=== PATIENT | male | born 1930 | race Caucasian/White ===

== ENCOUNTER 2017-01-09 22:00 | Inpatient (IN) | payer MEDICARE, BC ==
--- NOTE | 2017-01-09 22:55 | EDM.PDOC ---
ED HPI GENERAL MEDICAL PROBLEM - General Chief Complaint: Respiratory Problem Stated Complaint: FLUIDS IN HIS LUNGS Time Seen by Provider: 01/09/17 22:20 Source of Information: Reports: Family, Group Home Records, Old Records History Limitations: Reports: Altered Mental Status - History of Present Illness INITIAL COMMENTS - FREE TEXT/NARRATIVE: Rupert is a resident at [facility] who developed some chest congestion 3 days ago, and staff administered cough meds. Pulmonary congestion persisted, and seemed to escalate this evening with noisy respirations, 02 sats 82% on Ra, unimproved with suctioning and repositioning. He was sent to the [facility] ED for evaluation, placed on a gurney and given 02 per dryerman/woman at 3lpm with improvement in Fi02 91%. Suctioning of clear secretions also provided some improvement. A portable chest x ray notes some infiltrates in the L lower lobe, incipient pneumonitis suspected. Generalized Pain Score (Numeric/FACES): 3 - Related Data Allergies Allergy/AdvReac Type Severity Reaction Status Date / Time No Known Allergies Allergy Verified 01/09/17 23:11 Home Meds: Home Meds Carbidopa/Levodopa [Carbidopa-Levodopa 25-100] 2 tab PO TID 07/04/14 [History] Acetaminophen [Tylenol] 650 mg PO Q4H PRN #0 tablet 11/29/14 [Rx] Carbidopa/Levodopa [Carbidopa-Levo ER 50-200] 1 tab PO ASDIRECTED PRN #0 tab.er 11/29/14 [Rx] Carbidopa/Levodopa [Carbidopa-Levo ER 50-200] 1 tab PO BEDTIME tab.er 11/29/14 [Rx] Cholecalciferol (Vitamin D3) [Vitamin D3] 400 units PO BID tablet 11/29/14 [Rx] Gabapentin [Neurontin] 800 mg PO BEDTIME cap 11/29/14 [Rx] Lutein/Min/Vit C/Vit E Acetate [Ocuvite Lutein] 1 each PO DAILY cap 11/29/14 [ Rx] Mirtazapine [Remeron] 15 mg PO BEDTIME tablet 11/29/14 [Rx] Simvastatin [Zocor] 20 mg PO BEDTIME tablet 11/29/14 [Rx] Acetaminophen [Acetaminophen Extra Strength] 1,000 mg PO BID 01/09/17 [History] Baclofen [Baclofen] 5 mg PO BID 01/09/17 [History] Baclofen [Baclofen] 10 mg PO BID PRN 01/09/17 [History] Bisacodyl [Dulcolax] 10 mg RECTAL ASDIRECTED PRN 01/09/17 [History] Docusate Sodium/Sennosides [Senna Plus] 1 tab PO BID 01/09/17 [History] Hypromellose [GenTeal Mild to Moderate Ophth Soln] 1 drop EYEBOTH TID 01/09/17 [ History] Insulin Aspart [NovoLOG] 4 unit SQ BID 01/09/17 [History] Insulin Detemir [Levemir] 80 unit SQ DAILY 01/09/17 [History] Loperamide [Imodium] 2 mg PO ASDIRECTED PRN 01/09/17 [History] Magnesium Hydroxide [Milk of Magnesia] 30 ml PO DAILY 01/09/17 [History] Multivitamin [Multi-Vitamin Daily] 1 tab PO DAILY 01/09/17 [History] PARoxetine [Paxil] 20 mg PO DAILY 01/09/17 [History] Polyethylene Glycol 3350 [MiraLAX] 1 drop EYEBOTH BID 01/09/17 [History] Polyethylene Glycol 3350 [MiraLAX] 17 gm PO DAILY 01/09/17 [History] amLODIPine [Norvasc] 5 mg PO DAILY 01/09/17 [History] guaiFENesin [Robitussin] 100 mg PO Q4HR PRN 01/09/17 [History] metFORMIN HCl [Metformin HCl] 1,000 mg PO BID 01/09/17 [History] traZODone 50 mg PO 1600 01/09/17 [History] Lutein 5 mg PO DAILY 01/10/17 [History] Past Medical History Genitourinary History: Reports: Renal Disease Other Genitourinary History: PROSTATE CANCER Other Musculoskeletal History: Fell. Neurological History: Reports: Other (See Below) (chronic subdural hematoma) Other Neuro History: Fell, possible head injury. Endocrine/Metabolic History: Reports: Diabetes, Type II Oncologic (Cancer) History: Reports: Prostate Social & Family History - Tobacco Use Smoking Status *Q: Unknown Ever Smoked Years of Tobacco use: 40 Used Tobacco, but Quit: No Second Hand Smoke Exposure: No - Alcohol Use Days Per Week of Alcohol Use: 0 - Recreational Drug Use Recreational Drug Use: No - Living Situation & Occupation Living situation: Reports: , with Spouse Occupation: Disabled ED ROS GENERAL - Review of Systems Review Of Systems: Unable To Obtain ED EXAM, GENERAL - Physical Exam Exam: See Below Exam Limited By: Physical Impairment General Appearance: Lethargic, Obese Eye Exam: Bilateral Eye: Normal Inspection, PERRL Ears: Normal External Exam Nose: Normal Inspection Throat/Mouth: Normal Inspection Head: Normocephalic Neck: Normal Inspection, Limited Range of Motion Respiratory/Chest: No Respiratory Distress, No Accessory Muscle Use, Rales, Rhonchi Cardiovascular: Regular Rate, Rhythm GI/Abdominal: Normal Bowel Sounds, Soft, No Organomegaly, No Mass Back Exam: Normal Inspection Extremities: Limited Range of Motion (RUE: 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 I could rule out an early aspiration or SNF acquired pneumonia. Last Recorded V/S: Last Vital Signs Temp 37.3 C 01/09/17 22:00 Pulse 128 H 01/09/17 22:00 Resp 22 H 01/09/17 22:00 BP 160/88 H 01/09/17 22:00 Pulse Ox 80 L 01/09/17 22:00 - Orders/Labs/Meds Orders: Active Orders 24 hr Category Date Time Status Oxygen Therapy Adult [Oxygen Therapy, ED] [RC] Care 01/09/17 22:00 Active ASDIRECTED Chest 1V Frontal [CR] Stat Exams 01/09/17 22:16 Taken CULTURE BLOOD [BC] Stat Lab 01/09/17 23:20 Received Obtain Bld cultures prior to antibiotics [COMM] Routine Oth 01/09/17 23:08 Ordered Departure - Departure Time of Disposition: 23:18 Disposition: Refer to Observation Condition: Poor Clinical Impression: Aspiration pneumonia Qualifiers: Aspiration pneumonia type: unspecified Laterality: left Lung location: lower lobe of lung Qualified Code(s): J69.0 - Pneumonitis due to inhalation of food and vomit - Discharge Information - Problem List & Annotations (1) Aspiration pneumonia SNOMED Code(s): 724439987 Code(s): J69.0 - PNEUMONITIS DUE TO INHALATION OF FOOD AND VOMIT Status: Acute Current Visit: Yes Annotation/Comment:: Obtain cultures, provide antibiotic coverage and support pulmonary status. Qualifiers: Aspiration pneumonia type: unspecified Laterality: left Lung location: lower lobe of lung Qualified Code(s): J69.0 - Pneumonitis due to inhalation of food and vomit - Problem List Review Problem List Initiated/Reviewed/Updated: Yes - My Orders Last 24 Hours: My Active Orders 01/09/17 22:00 Oxygen Therapy Adult [Oxygen Therapy, ED] [RC] ASDIRECTED 01/09/17 22:16 Chest 1V Frontal [CR] Stat 01/09/17 23:08 Obtain Bld cultures prior to antibiotics [COMM] Routine 01/09/17 23:20 CULTURE BLOOD [BC] Stat - Assessment/Plan Last 24 Hours: My Active Orders 01/09/17 22:00 Oxygen Therapy Adult [Oxygen Therapy, ED] [RC] ASDIRECTED 01/09/17 22:16 Chest 1V Frontal [CR] Stat 01/09/17 23:08 Obtain Bld cultures prior to antibiotics [COMM] Routine 01/09/17 23:20 CULTURE BLOOD [BC] Stat Plan: Follow up with hospitalist in the am.
[2017-01-10] MEDS ORDERED: Sodium Chloride 0.9% 10 ML Syringe FLUSH PRN ×2 (01:16)
[2017-01-10] MEDS ORDERED: Acetaminophen 325 MG Tab PO ONE (01:27)
[2017-01-10] MEDS ORDERED: Acetaminophen 325 MG Tab PO PRN (01:28)
[2017-01-10] MEDS ORDERED: Bisacodyl 10 MG Supp RECTAL PRN (01:28)
[2017-01-10] MEDS ORDERED: Carbidopa/Levodopa 50-200 MG Tab.ER PO PRN (01:28)
[2017-01-10] MEDS ORDERED: Baclofen 10 MG Tab PO PRN (01:28)
[2017-01-10] MEDS ORDERED: guaiFENesin 100 MG/5 ML Soln 5 ML UD Cup PO PRN (01:28)
[2017-01-10] MEDS ORDERED: Acetaminophen 325 MG Supp RECTAL ONE (01:50)
[2017-01-10] MEDS: Levofloxacin/Dextrose 5%-Water 500 MG in Premix Bag 1 BAG IV SCH (01:52)
[2017-01-10] MEDS: Sodium Chloride 0.9% 1,000 ML IV SCH ×2 (02:33→22:12)
[2017-01-10] MEDS: metroNIDAZOLE/Normal Saline 500 MG in Premix Bag 1 BAG IV SCH ×3 (03:03→17:39)
[2017-01-10] MEDS ORDERED: metFORMIN 1,000 MG Tab *PTOM PO SCH (09:00)
[2017-01-10] MEDS ORDERED: Magnesium Hydroxide 400 MG/5 ML Susp 30 ML Cup PO PRN (09:00)
[2017-01-10] MEDS ORDERED: Polyethylene Glycol 3350 Powder 238 GM Bot *PTOM PO SCH (09:00)
--- NOTE | 2017-01-10 09:24 | PCM.HP ---
H&P History of Present Illness - General Date of Service: 01/10/17 Admit Problem/Dx: Admission Diagnosis/Problem Admission Diagnosis/Problem Aspiration pneumonia Source of Information: EMS Notes Reviewed, Family History Limitations: Reports: Altered Mental Status - History of Present Illness Initial Comments - Free Text/Narative: This is an 86-year-old male patient that is a resident of [facility]. 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 According to the he's had a cough for about 3 days and then started more lethargic and start running a fever. His oxygen saturation was in the 80s last night. They brought him to the ER and he was admitted. His states when he is been eating lately that he's been coughing. He does have any thickened liquids for his diet. Patient is not responding and not able to get any history from him at this time. The is unaware of anything else going on with him. Generalized Pain Score (Numeric/FACES): 3 - Related Data Allergies/Adverse Reactions: Allergies Allergy/AdvReac Type Severity Reaction Status Date / Time No Known Allergies Allergy Verified 01/09/17 23:11 Home Medications: Home Meds Carbidopa/Levodopa [Carbidopa-Levodopa 25-100] 2 tab PO TID@08,12,16 07/04/14 [ History] Acetaminophen [Tylenol] 650 mg PO Q4H PRN #0 tablet 11/29/14 [Rx] Carbidopa/Levodopa [Carbidopa-Levo ER 50-200] 1 tab PO ASDIRECTED PRN #0 tab.er 11/29/14 [Rx] Carbidopa/Levodopa [Carbidopa-Levo ER 50-200] 1 tab PO BEDTIME tab.er 11/29/14 [Rx] Cholecalciferol (Vitamin D3) [Vitamin D3] 400 units PO BID tablet 11/29/14 [Rx] Gabapentin [Neurontin] 800 mg PO BEDTIME cap 11/29/14 [Rx] Lutein/Min/Vit C/Vit E Acetate [Ocuvite Lutein] 1 each PO DAILY cap 11/29/14 [ Rx] Acetaminophen [Acetaminophen Extra Strength] 1,000 mg PO BID 01/09/17 [History] Baclofen [Baclofen] 5 mg PO BID 01/09/17 [History] Baclofen [Baclofen] 5 mg PO BID PRN 11/27/17 [History] Bisacodyl [Dulcolax] 10 mg RECTAL Q72H PRN 01/09/17 [History] Docusate Sodium/Sennosides [Senna Plus] 1 tab PO BID 01/09/17 [History] Insulin Aspart [NovoLOG] 4 unit SQ BIDAC 01/09/17 [History] Insulin Detemir [Levemir] 80 unit SQ DAILY 01/09/17 [History] Loperamide [Imodium] 2 - 4 mg PO ASDIRECTED PRN 01/09/17 [History] Magnesium Hydroxide [Milk of Magnesia] 30 ml PO DAILY 01/09/17 [History] Multivitamin [Multi-Vitamin Daily] 1 tab PO DAILY 01/09/17 [History] Polyethylene Glycol 3350 [MiraLAX] 1 drop EYEBOTH BID 01/09/17 [History] Polyethylene Glycol 3350 [MiraLAX] 17 gm PO DAILY 01/09/17 [History] amLODIPine [Norvasc] 5 mg PO DAILY 01/09/17 [History] guaiFENesin [Robitussin] 100 mg PO Q4H PRN 01/09/17 [History] metFORMIN HCl [Metformin HCl] 1,000 mg PO BIDMEALS 01/09/17 [History] traZODone 25 mg PO 1600 01/09/17 [History] Calcium Carbonate/Vitamin D3 [Oyster Shell 250 mg + Vit D] 2 tab PO DAILY [History] Hypromellose [GenTeal Mild to Moderate Ophth Soln] 1 drop EYEBOTH BID 01/10/17 [ History] Lutein 5 mg PO DAILY 01/10/17 [History] Mirtazapine 30 mg PO BEDTIME 01/10/17 [History] PARoxetine [Paxil] 20 mg PO DAILY 01/10/17 [History] Simvastatin [Zocor] 20 mg PO BEDTIME 01/10/17 [History] Past Medical History HEENT History: Reports: Hard of Hearing, Macular Degeneration Cardiovascular History: Reports: None Respiratory History: Reports: SOB Gastrointestinal History: Reports: GERD Genitourinary History: Reports: Renal Disease Other Genitourinary History: PROSTATE CANCER Musculoskeletal History: Reports: Other (See Below) Other Musculoskeletal History: Fell. Neurological History: Reports: Other (See Below) (chronic subdural hematoma) Other Neuro History: Fell, possible head injury. Psychiatric History: Reports: Anxiety, Other (See Below) Other Psychiatric History: unable to speak, does understand Endocrine/Metabolic History: Reports: Diabetes, Type II Hematologic History: Reports: None Immunologic History: Reports: None Oncologic (Cancer) History: Reports: Prostate Dermatologic History: Reports: Other (See Below) Other Dermatologic History: skin cancer face, was removed - Infectious Disease History Infectious Disease History: Reports: Chicken Pox, Measles, Mumps, Shingles - Past Surgical History Head Surgeries/Procedures: Reports: None HEENT Surgical History: Reports: Cataract Surgery Other HEENT Surgeries/Procedures: information given by daughter kyaw omer Cardiovascular Surgical History: Reports: None Respiratory Surgical History: Reports: None GI Surgical History: Reports: None Male Surgical History: Reports: Other (See Below) Other Male Surgeries/Procedures: prostate removed Endocrine Surgical History: Reports: None Neurological Surgical History: Reports: None Musculoskeletal Surgical History: Reports: None Dermatological Surgical History: Reports: Skin Biopsy Social & Family History - Family History Family Medical History: Noncontributory - Tobacco Use Smoking Status *Q: Unknown Ever Smoked Years of Tobacco use: 40 Packs/Tins Daily: 1 Used Tobacco, but Quit: No Month Tobacco Last Used: dec 2011 Tobacco Use Comment: stopped smoking 5 years ago Second Hand Smoke Exposure: No - Caffeine Use Caffeine Use: Reports: None - Alcohol Use Days Per Week of Alcohol Use: 0 - Recreational Drug Use Recreational Drug Use: No - Living Situation & Occupation Living situation: Reports: , with Spouse Occupation: Disabled H&P Review of Systems - Review of Systems: Review Of Systems: Unable To Obtain Exam - Exam Exam: See Below - Vital Signs Vital Signs: Last Vital Signs Temp 99.5 F 01/10/17 08:00 Pulse 89 01/10/17 08:00 Resp 22 H 01/10/17 08:00 BP 144/84 H 01/10/17 08:00 Pulse Ox 94 L 01/10/17 08:00 Weight: 205 lb 4.8 oz - Exam General: Obtunded. No: Alert, Oriented, Cooperative HEENT: Conjunctiva Clear, Posterior Pharynx Clear, TMs Clear Neck: Supple, Trachea Midline Lungs: Normal Respiratory Effort, Decreased Breath Sounds. No: Crackles, Rales , Rhonchi Cardiovascular: Regular Rate, Regular Rhythm. No: Systolic Murmur, Diastolic Murmur GI/Abdominal Exam: Normal Bowel Sounds, Non-Tender, No Distention Extremities: Normal Inspection, Non-Tender, No Pedal Edema Skin: Warm, Dry, Other (Abrasion with a small skin tear right forearm.) Neurological: Normal Tone. No: Normal Gait, Normal Speech Neuro Extensive - Mental Status: No: Alert, Oriented x3 Neuro Extensive - Motor, Sensory, Reflexes: Other (Patient not responsive to pain) Psychiatric: No: Alert, Normal Affect, Normal Mood - Patient Data Lab Results Last 24 hrs: Laboratory Results - last 24 hr 01/09/17 01/09/17 01/10/17 Range/Units 23:20 23:20 07:43 WBC 11.9 (4.5-12.0) X10-3/uL RBC 5.29 (4.30-5.75) x10(6)uL Hgb 16.6 H (11.5-15.5) g/dL Hct 49.3 (30.0-51.3) % MCV 93.1 (80-96) fL MCH 31.3 (27.7-33.6) pg MCHC 33.6 (32.2-35.4) g/dL RDW 12.9 (11.5-15.5) % Plt Count 163 (125-369) X10(3)uL MPV 9.7 (7.4-10.4) fL Neut % (Auto) 74.8 (46-82) % Lymph % (Auto) 16.1 (13-37) % [place] % (Auto) 7.0 (4-12) % Eos % (Auto) 1 (1.0-5.0) % Baso % (Auto) 1 (0-2) % Neut # (Auto) 9.0 H (1.6-8.3) # Lymph # (Auto) 1.9 (0.6-5.0) # [place] # (Auto) 0.8 (0.0-1.3) # Eos # (Auto) 0.1 (0.0-0.8) # Baso # (Auto) 0.1 (0.0-0.2) # Sodium 141 (135-145) mmol/L Potassium 4.0 (3.5-5.3) mmol/L Chloride 101 (100-110) mmol/L Carbon Dioxide 29 (21-32) mmol/L BUN 15 (7-18) mg/dL Creatinine 0.9 (0.70-1.30) mg/dL Est Cr Clr Drug Dosing 58.92 mL/min Estimated GFR (MDRD) > 60 (>60) BUN/Creatinine Ratio 16.7 (9-20) Glucose 95 (80-116) mg/dL POC Glucose 107 (80-116) mg/dL Calcium 9.1 (8.6-10.2) mg/dL Total Bilirubin 0.7 (0.1-1.3) mg/dL AST 19 (5-25) IU/L ALT 8 L (12-36) U/L Alkaline Phosphatase 144 H (56-112) IU/L Total Protein 7.6 (6.0-8.0) g/dL Albumin 3.7 (3.2-4.6) g/dL Globulin 3.9 g/dL Albumin/Globulin Ratio 1.0 Result Diagrams: 01/09/17 23:20 01/09/17 23:20 *Q Meaningful Use (ADM) - VTE *Q VTE Criteria *Q: - Stroke *Q Stroke Criteria *Q: - AMI *Q AMI Criteria *Q: - Problem List (1) Palliative care status SNOMED Code(s): 353993326 ICD Code: Z51.5 - ENCOUNTER FOR PALLIATIVE CARE Status: Acute Current Visit: Yes (2) Aspiration pneumonia SNOMED Code(s): 163978862 ICD Code: J69.0 - PNEUMONITIS DUE TO INHALATION OF FOOD AND VOMIT Status: Acute Current Visit: Yes Problem Details: Obtain cultures, provide antibiotic coverage and support pulmonary status. Qualifiers: Aspiration pneumonia type: unspecified Laterality: left Lung location: lower lobe of lung Qualified Code(s): J69.0 - Pneumonitis due to inhalation of food and vomit (3) Ambulatory dysfunction SNOMED Code(s): 695842937 ICD Code: R26.2 - DIFFICULTY IN WALKING, NOT ELSEWHERE CLASSIFIED Status: Chronic Priority: Medium Current Visit: No (4) Anxiety disorder due to a general medical condition SNOMED Code(s): 34949648 ICD Code: F06.4 - ANXIETY DISORDER DUE TO KNOWN PHYSIOLOGICAL CONDITION Status: Chronic Priority: Medium Current Visit: No Onset Date: 11/05/14 (5) Diabetes mellitus SNOMED Code(s): 42217066 ICD Code: E11.9 - TYPE 2 DIABETES MELLITUS WITHOUT COMPLICATIONS Status: Chronic Priority: Low Current Visit: No Onset Date: 12/18/13 Problem Details: Need to continue current insuline regumen to prevent in hypo/hyperglycemic episodes which could impair LOC as well as immune system. sets him up for dehydration and further neurovascular/electrolyte dysregulation. (6) Parkinson's disease SNOMED Code(s): 74211399 ICD Code: G20 - PARKINSON'S DISEASE Status: Chronic Priority: Medium Current Visit: No Problem List Initiated/Reviewed/Updated: Yes Orders Last 24hrs: Active Orders 24 hr Category Date Time Status Blood Glucose Check, Bedside [RC] QIDACANDBED Care 01/10/17 01:16 Active Pulse Oximetry [RC] INTERMITTENT Care 01/10/17 01:16 Active Up With Assistance [RC] ASDIRECTED Care 01/10/17 01:16 Active Vital Signs [RC] 00,04,08,12,16,20 Care 01/10/17 01:16 Active Nothing per Oral Now Diet [DIET] Diet 01/10/17 Breakfast Active CULTURE BLOOD [BC] Routine Lab 01/09/17 23:25 Received Acetaminophen [Tylenol] Med 01/10/17 01:28 Active 650 mg PO Q4H PRN Baclofen [Lioresal] Med 01/10/17 09:00 Active 5 mg PO BID Baclofen [Lioresal] Med 01/10/17 01:28 Active 5 mg PO BID PRN Bisacodyl [Dulcolax] Med 01/10/17 01:28 Active 10 mg RECTAL ASDIRECTED PRN Carbidopa/Levodopa [Sinemet 25-100 mg] Med 01/10/17 08:00 Active 2 tab PO TID@0800,1200,1600 Carbidopa/Levodopa [Sinemet Cr 50-200 mg] Med 01/10/17 01:28 Active 1 tab PO ASDIRECTED PRN Carbidopa/Levodopa [Sinemet Cr 50-200 mg] Med 01/10/17 21:00 Active 1 tab PO BEDTIME Cholecalciferol (Vitamin D3) [Vitamin D3] Med 01/10/17 09:00 Active 0 units PO BID Docusate Sodium/Sennosides [Senna Plus] Med 01/10/17 09:00 Active 1 tab PO BID Gabapentin [Neurontin] Med 01/10/17 21:00 Active 800 mg PO BEDTIME Hypromellose [GenTeal Mild to Moderate Ophth Soln] Med 01/10/17 09:00 Ordered DOSE ml EYEBOTH TID Levofloxacin/Dextrose 5%-Water [Levaquin in D5W 500 MG/ Med 01/10/17 02:00 Active 100 ML] 500 mg Premix Bag 1 bag IV Q24H Lutein Med 01/10/17 09:00 Active 5 mg PO DAILY Lutein/Min/Vit C/Vit E Acetate [Ocuvite Lutein] Med 01/10/17 09:00 Active 1 each PO DAILY Magnesium Hydroxide [Milk of Magnesia] Med 01/10/17 09:00 Active 30 ml PO DAILY PRN Multivitamins [Tab-A-Gabi] Med 01/10/17 09:00 Active 1 tab PO DAILY Polyethylene Glycol 3350 [MiraLAX] Med 01/10/17 09:00 Active 17 gm PO DAILY Sodium Chloride 0.9% [Normal Saline] 1,000 ml Med 01/10/17 01:30 Active IV ASDIRECTED Sodium Chloride 0.9% [Saline Flush] Med 01/10/17 01:16 Active 10 ml FLUSH ASDIRECTED PRN Sodium Chloride 0.9% [Saline Flush] Med 01/10/17 01:16 Active 10 ml FLUSH ASDIRECTED PRN amLODIPine [Norvasc] Med 01/10/17 09:00 Active 5 mg PO DAILY guaiFENesin [Robitussin] Med 01/10/17 01:28 Active 100 mg PO Q4H PRN metFORMIN [Glucophage] Med 01/10/17 09:00 Active 1,000 mg PO BIDMEALS metroNIDAZOLE/Normal Saline [Flagyl 500 MG in NS 100 ML Med 01/10/17 02:00 Active ] 500 mg Premix Bag 1 bag IV Q8H traZODone Med 01/10/17 16:00 Active 25 mg PO 1600 Peripheral IV Insertion Adult [OM.PC] Urgent Oth 01/10/17 01:16 Ordered Code Status [Resuscitation Status] Routine Resus Stat 01/10/17 06:32 Ordered Medication Orders Acetaminophen (Tylenol) 650 mg PO Q4H PRN PRN Reason: mild pain or fever >101F Amlodipine Besylate (Norvasc) 5 mg PO DAILY [facility] Artificial Tears (Genteal Mild To Moderate Ophth Soln) ml EYEBOTH TID [place] Baclofen (Lioresal) 5 mg PO BID [place] Baclofen (Lioresal) 5 mg PO BID PRN PRN Reason: Pain Bisacodyl (Dulcolax) 10 mg RECTAL ASDIRECTED PRN PRN Reason: Constipation Carbidopa/Levodopa (Sinemet Cr 50-200 Mg) 1 tab PO ASDIRECTED PRN PRN Reason: if awake in middle of night Carbidopa/Levodopa (Sinemet Cr 50-200 Mg) 1 tab PO BEDTIME [place] Carbidopa/Levodopa (Sinemet 25-100 Mg) 2 tab PO TID@0800,1200,1600 [facility] Gabapentin (Neurontin) 800 mg PO BEDTIME [facility] Guaifenesin (Robitussin) 100 mg PO Q4H PRN PRN Reason: Cough Levofloxacin/Dextrose 500 mg/ (Premix) 100 mls @ 100 mls/hr IV Q24H [facility] Last Admin: 01/10/17 01:52 Dose: 100 mls/hr Metronidazole 500 mg/ Premix 100 mls @ 100 mls/hr IV Q8H [facility] Last Admin: 01/10/17 03:03 Dose: 100 mls/hr Sodium Chloride (Normal Saline) 1,000 mls @ 125 mls/hr IV ASDIRECTED [facility] Last Admin: 01/10/17 02:33 Dose: 125 mls/hr Lutein (Lutein) 5 mg PO DAILY [facility] Magnesium Hydroxide (Milk Of Magnesia) 30 ml PO DAILY PRN PRN Reason: CONSTIPATION Metformin HCl (Glucophage) 1,000 mg PO BIDMEALS [facility] Multivitamins/Minerals/Vitamin C (Tab-A-Gabi) 1 tab PO DAILY [facility] Vitamin D 400 Units ((Non-Form) *Ptom) 0 units PO BID [facility] Polyethylene Glycol (Miralax) 17 gm PO DAILY [facility] Senna/Docusate Sodium (Senna Plus) 1 tab PO BID [facility] Sodium Chloride (Saline Flush) 10 ml FLUSH ASDIRECTED PRN PRN Reason: Keep Vein Open Last Admin: 01/10/17 01:51 Dose: 10 ml Sodium Chloride (Saline Flush) 10 ml FLUSH ASDIRECTED PRN PRN Reason: Keep Vein Open Trazodone HCl (Trazodone) 25 mg PO 1600 [facility] Vit C/Vit E/Zinc/Copper/Lutein (Ocuvite Lutein) 1 each PO DAILY [facility] Assessment/Plan Comment:: 1. Admit to the hospital for pneumonia. 2. Oxygen to keep saturations greater than 90%. 3. Flagyl and Levaquin to cover pulmonary pathogens. 4. IV fluids keep him hydrated. 5. He is a DNR according to the . His condition is guarded at this point. They do not want any heroic measures. I told him we will keep him comfortable. Given IV fluids antibiotics and oxygen and see how he does. 6. Respiratory therapy evaluation. 7. Give by mouth medicines as patient will respond.
[2017-01-10] MEDS: [UNRECOGNIZED DRUG - REMARK] PO SCH ×2 (10:28→20:27)
[2017-01-10] MEDS: Carbidopa/Levodopa 25-100 MG Tab PO SCH ×3 (10:28→15:46)
[2017-01-10] MEDS: Baclofen 10 MG Tab PO SCH ×2 (10:28→20:28)
[2017-01-10] MEDS: Hypromellose 0.3% Ophth Soln 15 ML Bottle EYEBOTH SCH ×2 (10:28→15:39)
[2017-01-10] MEDS: amLODIPine 5 MG Tab PO SCH (10:29)
[2017-01-10] MEDS: Multivitamin Tab PO SCH (10:30)
[2017-01-10] MEDS: Lutein/Minerals/Vitamin C/Vitamin E Acetate Cap PO SCH (10:30)
[2017-01-10] MEDS ORDERED: metroNIDAZOLE/Normal Saline 100 ML ONE (10:37)
[2017-01-10] MEDS: traZODone 50 MG Tab PO SCH (15:47)
[2017-01-10] MEDS: Carbidopa/Levodopa 50-200 MG Tab.ER PO SCH (20:28)
[2017-01-10] MEDS: Gabapentin 400 MG Cap PO SCH (20:28)
[2017-01-11] MEDS: Hypromellose 0.3% Ophth Soln 15 ML Bottle EYEBOTH SCH ×4 (00:59→21:39)
[2017-01-11] MEDS: metroNIDAZOLE/Normal Saline 500 MG in Premix Bag 1 BAG IV SCH ×3 (01:21→17:19)
[2017-01-11] MEDS: Levofloxacin/Dextrose 5%-Water 500 MG in Premix Bag 1 BAG IV SCH (02:40)
[2017-01-11] MEDS: Albuterol/Ipratropium 3.0-0.5 MG/3 ML Neb Soln NEB PRN ×2 (07:35→12:21)
[2017-01-11] MEDS: Sodium Chloride 0.9% 1,000 ML IV SCH ×2 (08:18→17:17)
[2017-01-11] MEDS: Carbidopa/Levodopa 25-100 MG Tab PO SCH ×3 (08:21→16:58)
--- NOTE | 2017-01-11 08:28 | PCM.PN ---
- General Info Date of Service: 01/11/17 Admission Dx/Problem (Free Text): and daughter state that he is a little bit more alert last night and this morning. He is smiling and grabbing things like taking his oxygen off. So 11 a harsh cough and requiring 4 L of oxygen. His thinks he feels hot. The patient cannot give me history today. - Patient Data Vitals - Most Recent: Last Vital Signs Temp 98.1 F 01/11/17 04:00 Pulse 91 01/11/17 04:00 Resp 18 01/11/17 04:00 BP 131/74 01/11/17 04:00 Pulse Ox 96 01/11/17 04:00 Weight - Most Recent: 205 lb 4.8 oz I&O - Last 24 Hours: Intake & Output 01/10/17 01/11/17 01/11/17 22:59 06:59 14:59 Intake Total 962 1025 200 Balance 962 1025 200 Lab Results Last 24 Hours: Laboratory Results - last 24 hr 01/10/17 01/11/17 01/11/17 Range/Units 17:08 05:50 05:50 WBC 7.3 (4.5-12.0) X10-3/uL RBC 3.97 L (4.30-5.75) x10(6)uL Hgb 13.1 D (11.5-15.5) g/dL Hct 36.9 D (30.0-51.3) % MCV 92.9 (80-96) fL MCH 33.0 (27.7-33.6) pg MCHC 35.5 H (32.2-35.4) g/dL RDW 12.8 (11.5-15.5) % Plt Count 126 (125-369) X10(3)uL MPV 9.5 (7.4-10.4) fL Neut % (Auto) 73.8 (46-82) % Lymph % (Auto) 14.3 (13-37) % Bosque % (Auto) 6.6 (4-12) % Eos % (Auto) 4 (1.0-5.0) % Baso % (Auto) 1 (0-2) % Neut # (Auto) 5.4 (1.6-8.3) # Lymph # (Auto) 1.0 (0.6-5.0) # Bosque # (Auto) 0.5 (0.0-1.3) # Eos # (Auto) 0.3 (0.0-0.8) # Baso # (Auto) 0.1 (0.0-0.2) # Sodium 140 (135-145) mmol/L Potassium 4.0 (3.5-5.3) mmol/L Chloride 105 (100-110) mmol/L Carbon Dioxide 26 (21-32) mmol/L BUN 17 (7-18) mg/dL Creatinine 0.9 (0.70-1.30) mg/dL Est Cr Clr Drug Dosing 60.83 mL/min Estimated GFR (MDRD) > 60 (>60) BUN/Creatinine Ratio 18.9 (9-20) Glucose 156 H (80-116) mg/dL POC Glucose 131 H (80-116) mg/dL Calcium 7.9 L (8.6-10.2) mg/dL Total Bilirubin 0.6 (0.1-1.3) mg/dL AST 26 H D (5-25) IU/L ALT 23 D (12-36) U/L Alkaline Phosphatase 102 (56-112) IU/L Total Protein 6.1 (6.0-8.0) g/dL Albumin 2.7 L (3.2-4.6) g/dL Globulin 3.4 g/dL Albumin/Globulin Ratio 0.8 Simón Results Last 24 Hours: Microbiology 01/09/17 23:25 Aerobic Blood Culture - Preliminary Blood NO GROWTH AFTER 1 DAY Anaerobic Blood Culture - Preliminary NO GROWTH AFTER 1 DAY 01/09/17 23:20 Aerobic Blood Culture - Preliminary Blood NO GROWTH AFTER 1 DAY Anaerobic Blood Culture - Preliminary NO GROWTH AFTER 1 DAY Med Orders - Current: Current Medications Acetaminophen (Tylenol) 650 mg PO Q4H PRN PRN Reason: mild pain or fever >101F Albuterol/Ipratropium (Duoneb 3.0-0.5 Mg/3 Ml) 3 ml NEB Q4H PRN PRN Reason: Cough Last Admin: 01/11/17 07:35 Dose: 3 ml Amlodipine Besylate (Norvasc) 5 mg PO DAILY [facility] Last Admin: 01/10/17 10:29 Dose: Not Given Artificial Tears (Genteal Mild To Moderate Ophth Soln) 0 ml EYEBOTH TID [facility] Last Admin: 01/11/17 00:59 Dose: Not Given Baclofen (Lioresal) 5 mg PO BID [facility] Last Admin: 01/10/17 20:28 Dose: Not Given Baclofen (Lioresal) 5 mg PO BID PRN PRN Reason: Pain Bisacodyl (Dulcolax) 10 mg RECTAL ASDIRECTED PRN PRN Reason: Constipation Carbidopa/Levodopa (Sinemet Cr 50-200 Mg) 1 tab PO ASDIRECTED PRN PRN Reason: if awake in middle of night Carbidopa/Levodopa (Sinemet Cr 50-200 Mg) 1 tab PO BEDTIME [facility] Last Admin: 01/10/17 20:28 Dose: Not Given Carbidopa/Levodopa (Sinemet 25-100 Mg) 2 tab PO TID@0800,1200,1600 [facility] Last Admin: 01/11/17 08:21 Dose: Not Given Gabapentin (Neurontin) 800 mg PO BEDTIME [facility] Last Admin: 01/10/17 20:28 Dose: Not Given Guaifenesin (Robitussin) 100 mg PO Q4H PRN PRN Reason: Cough Levofloxacin/Dextrose 500 mg/ (Premix) 100 mls @ 100 mls/hr IV Q24H [facility] Last Admin: 01/11/17 02:40 Dose: 100 mls/hr Metronidazole 500 mg/ Premix 100 mls @ 100 mls/hr IV Q8H [facility] Last Admin: 01/11/17 01:21 Dose: 100 mls/hr Sodium Chloride (Normal Saline) 1,000 mls @ 125 mls/hr IV ASDIRECTED [facility] Last Admin: 01/11/17 08:18 Dose: 125 mls/hr Lutein (Lutein) 5 mg PO DAILY [facility] Last Admin: 01/10/17 10:29 Dose: Not Given Magnesium Hydroxide (Milk Of Magnesia) 30 ml PO DAILY PRN PRN Reason: CONSTIPATION Multivitamins/Minerals/Vitamin C (Tab-A-Gabi) 1 tab PO DAILY [facility] Last Admin: 01/10/17 10:30 Dose: Not Given Vitamin D 400 Units ((Non-Form) *Ptom) 0 units PO BID [facility] Last Admin: 01/10/17 20:27 Dose: Not Given Polyethylene Glycol (Miralax) 17 gm PO DAILY [facility] Last Admin: 01/10/17 10:29 Dose: Not Given Senna/Docusate Sodium (Senna Plus) 1 tab PO BID [facility] Last Admin: 01/10/17 20:28 Dose: Not Given Sodium Chloride (Saline Flush) 10 ml FLUSH ASDIRECTED PRN PRN Reason: Keep Vein Open Last Admin: 01/10/17 01:51 Dose: 10 ml Sodium Chloride (Saline Flush) 10 ml FLUSH ASDIRECTED PRN PRN Reason: Keep Vein Open Trazodone HCl (Trazodone) 25 mg PO 1600 [facility] Last Admin: 01/10/17 15:47 Dose: Not Given Vit C/Vit E/Zinc/Copper/Lutein (Ocuvite Lutein) 1 each PO DAILY [facility] Last Admin: 01/10/17 10:30 Dose: Not Given Discontinued Medications Acetaminophen (Tylenol) 325 mg RECTAL NOW ONE Stop: 01/10/17 01:51 Last Admin: 01/10/17 02:12 Dose: 325 mg Metronidazole (Flagyl 500 Mg In Ns 100 Ml) Confirm Administered Dose 100 mls @ as directed .ROUTE .STK-MED ONE Stop: 01/10/17 10:38 Last Admin: 01/10/17 15:37 Dose: Not Given Metformin HCl (Glucophage) 1,000 mg PO BIDMEALS [facility] Last Admin: 01/10/17 10:32 Dose: Not Given - Exam General: Cooperative, Other (Patient does smile last night and this morning when I talk to him. He does not speak.) Neck: Supple Lungs: Clear to Auscultation, Normal Respiratory Effort. No: Crackles, Rales, Rhonchi Cardiovascular: Regular Rate, Regular Rhythm, No Murmurs Extremities: No Pedal Edema - Problem List & Annotations (1) Palliative care status SNOMED Code(s): 083066386 Code(s): Z51.5 - ENCOUNTER FOR PALLIATIVE CARE Status: Acute Current Visit: Yes (2) Aspiration pneumonia SNOMED Code(s): 358238430 Code(s): J69.0 - PNEUMONITIS DUE TO INHALATION OF FOOD AND VOMIT Status: Acute Current Visit: Yes Qualifiers: Aspiration pneumonia type: unspecified Laterality: left Lung location: lower lobe of lung Qualified Code(s): J69.0 - Pneumonitis due to inhalation of food and vomit Annotation/Comment:: Obtain cultures, provide antibiotic coverage and support pulmonary status. 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 sets him up for dehydration and further neurovascular/electrolyte dysregulation. (6) Parkinson's disease SNOMED Code(s): 93787791 Code(s): G20 - PARKINSON'S DISEASE Status: Chronic Priority: Medium Current Visit: No - Problem List Review Problem List Initiated/Reviewed/Updated: Yes - My Orders Last 24 Hours: My Active Orders 01/10/17 09:38 Consult to Respiratory Therapy [Respiratory Care Assess and Treatment] [CONS] Routine 01/10/17 09:39 RT Aerosol Therapy [RC] ASDIRECTED Albuterol/Ipratropium [DuoNeb 3.0-0.5 MG/3 ML] 3 ml NEB Q4H PRN - Assessment Assessment:: 1. Continue current care. 2. Continue to hold his medications. If he becomes more alert we may try to start by mouth medications. 3. The family talked about hospice yesterday. They're having second velocity. I suggested they at least see what hospice has to offer. - Plan Plan:: 1. Admit to the hospital for pneumonia. 2. Oxygen to keep saturations greater than 90%. 3. Flagyl and Levaquin to cover pulmonary pathogens. 4. IV fluids keep him hydrated. 5. He is a DNR according to the . His condition is guarded at this point. They do not want any heroic measures. I told him we will keep him comfortable. Given IV fluids antibiotics and oxygen and see how he does. 6. Respiratory therapy evaluation. 7. Give by mouth medicines as patient will respond.
[2017-01-11] MEDS: Lutein/Minerals/Vitamin C/Vitamin E Acetate Cap PO SCH (09:00)
[2017-01-11] MEDS: Baclofen 10 MG Tab PO SCH ×2 (09:00→21:39)
[2017-01-11] MEDS: amLODIPine 5 MG Tab PO SCH (09:00)
[2017-01-11] MEDS: Multivitamin Tab PO SCH (09:00)
[2017-01-11] MEDS: traZODone 50 MG Tab PO SCH (16:59)
[2017-01-11] MEDS: Carbidopa/Levodopa 50-200 MG Tab.ER PO SCH (21:39)
[2017-01-11] MEDS: Gabapentin 400 MG Cap PO SCH (21:39)
[2017-01-12] MEDS: metroNIDAZOLE/Normal Saline 500 MG in Premix Bag 1 BAG IV SCH ×2 (01:57→11:41)
[2017-01-12] MEDS ORDERED: Levofloxacin/Dextrose 5%-Water 500 MG in Premix Bag 1 BAG IV SCH (03:00)
[2017-01-12] MEDS: Sodium Chloride 0.9% 1,000 ML IV SCH (03:07)
[2017-01-12] MEDS: Albuterol/Ipratropium 3.0-0.5 MG/3 ML Neb Soln NEB PRN (07:12)
--- NOTE | 2017-01-12 08:35 | PCM.PN ---
- General Info Date of Service: 01/12/17 Admission Dx/Problem (Free Text): Patient is more alert according to the daughter. Still having cough. No other concerns today. Had a hospice consult yesterday and therefore a redo it again today for the rest of the family. - Patient Data Vitals - Most Recent: Last Vital Signs Temp 98.6 F 01/12/17 04:00 Pulse 99 01/12/17 04:00 Resp 20 01/12/17 04:00 BP 148/69 H 01/12/17 04:00 Pulse Ox 93 L 01/12/17 04:00 Weight - Most Recent: 205 lb 4.8 oz Med Orders - Current: Current Medications Acetaminophen (Tylenol) 650 mg PO Q4H PRN PRN Reason: mild pain or fever >101F Albuterol/Ipratropium (Duoneb 3.0-0.5 Mg/3 Ml) 3 ml NEB Q4H PRN PRN Reason: Cough Last Admin: 01/12/17 07:12 Dose: 3 ml Amlodipine Besylate (Norvasc) 5 mg PO DAILY [facility] Last Admin: 01/11/17 09:00 Dose: Not Given Artificial Tears (Genteal Mild To Moderate Ophth Soln) 0 ml EYEBOTH TID [facility] Last Admin: 01/11/17 21:39 Dose: Not Given Baclofen (Lioresal) 5 mg PO BID [facility] Last Admin: 01/11/17 21:39 Dose: Not Given Baclofen (Lioresal) 5 mg PO BID PRN PRN Reason: Pain Bisacodyl (Dulcolax) 10 mg RECTAL ASDIRECTED PRN PRN Reason: Constipation Carbidopa/Levodopa (Sinemet Cr 50-200 Mg) 1 tab PO ASDIRECTED PRN PRN Reason: if awake in middle of night Carbidopa/Levodopa (Sinemet Cr 50-200 Mg) 1 tab PO BEDTIME [facility] Last Admin: 01/11/17 21:39 Dose: Not Given Carbidopa/Levodopa (Sinemet 25-100 Mg) 2 tab PO TID@0800,1200,1600 [facility] Last Admin: 01/11/17 16:58 Dose: Not Given Cholecalciferol (Vitamin D3) 1,000 units PO DAILY [facility] Gabapentin (Neurontin) 800 mg PO BEDTIME [facility] Last Admin: 11/29/17 21:39 Dose: Not Given Guaifenesin (Robitussin) 100 mg PO Q4H PRN PRN Reason: Cough Metronidazole 500 mg/ Premix 100 mls @ 100 mls/hr IV Q8H [facility] Last Admin: 01/12/17 01:57 Dose: 100 mls/hr Sodium Chloride (Normal Saline) 1,000 mls @ 125 mls/hr IV ASDIRECTED [facility] Last Admin: 01/12/17 03:07 Dose: 125 mls/hr Levofloxacin/Dextrose 500 mg/ (Premix) 100 mls @ 100 mls/hr IV Q24H [facility] Last Admin: 01/12/17 03:05 Dose: 100 mls/hr Lutein (Lutein) 5 mg PO DAILY [facility] Last Admin: 01/11/17 09:00 Dose: Not Given Magnesium Hydroxide (Milk Of Magnesia) 30 ml PO DAILY PRN PRN Reason: CONSTIPATION Multivitamins/Minerals/Vitamin C (Tab-A-Gabi) 1 tab PO DAILY [facility] Last Admin: 01/11/17 09:00 Dose: Not Given Polyethylene Glycol (Miralax) 17 gm PO DAILY [facility] Senna/Docusate Sodium (Senna Plus) 1 tab PO BID [facility] Last Admin: 01/11/17 21:39 Dose: Not Given Sodium Chloride (Saline Flush) 10 ml FLUSH ASDIRECTED PRN PRN Reason: Keep Vein Open Last Admin: 01/10/17 01:51 Dose: 10 ml Sodium Chloride (Saline Flush) 10 ml FLUSH ASDIRECTED PRN PRN Reason: Keep Vein Open Trazodone HCl (Trazodone) 25 mg PO 1600 [facility] Last Admin: 01/11/17 16:59 Dose: Not Given Vit C/Vit E/Zinc/Copper/Lutein (Ocuvite Lutein) 1 each PO DAILY [facility] Last Admin: 01/11/17 09:00 Dose: Not Given Discontinued Medications Acetaminophen (Tylenol) 325 mg RECTAL NOW ONE Stop: 01/10/17 01:51 Last Admin: 01/10/17 02:12 Dose: 325 mg Levofloxacin/Dextrose 500 mg/ (Premix) 100 mls @ 100 mls/hr IV Q24H [facility] Last Admin: 01/11/17 02:40 Dose: 100 mls/hr Metronidazole (Flagyl 500 Mg In Ns 100 Ml) Confirm Administered Dose 100 mls @ as directed .ROUTE .[facility]-MED ONE Stop: 01/10/17 10:38 Last Admin: 01/10/17 15:37 Dose: Not Given Metformin HCl (Glucophage) 1,000 mg PO BIDMEALS [facility] Last Admin: 01/10/17 10:32 Dose: Not Given Vitamin D 400 Units ((Non-Form) *Ptom) 0 units PO BID [facility] Last Admin: 01/10/17 20:27 Dose: Not Given Polyethylene Glycol (Miralax) 17 gm PO DAILY [facility] Last Admin: 01/10/17 10:29 Dose: Not Given - Exam General: Alert. No: Oriented, Cooperative Neck: Supple Lungs: Decreased Breath Sounds, Crackles Cardiovascular: Regular Rate, Regular Rhythm, No Murmurs - Problem List & Annotations (1) Palliative care status SNOMED Code(s): 135375494 Code(s): Z51.5 - ENCOUNTER FOR PALLIATIVE CARE Status: Acute Current Visit: Yes (2) Aspiration pneumonia SNOMED Code(s): 945733812 Code(s): J69.0 - PNEUMONITIS DUE TO INHALATION OF FOOD AND VOMIT Status: Acute Current Visit: Yes Qualifiers: Aspiration pneumonia type: unspecified Laterality: left Lung location: lower lobe of lung Qualified Code(s): J69.0 - Pneumonitis due to inhalation of food and vomit Annotation/Comment:: Obtain cultures, provide antibiotic coverage and support pulmonary status. 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 sets him up for dehydration and further neurovascular/electrolyte dysregulation. (6) Parkinson's disease SNOMED Code(s): 93459852 Code(s): G20 - PARKINSON'S DISEASE Status: Chronic Priority: Medium Current Visit: No - Problem List Review Problem List Initiated/Reviewed/Updated: Yes - Assessment Assessment:: 1. Hospice consult today at 10 AM. 2. If the patients family chooses hospice we will transfer back to the senior living on hospice. - Plan Plan:: 1. Admit to the hospital for pneumonia. 2. Oxygen to keep saturations greater than 90%. 3. Flagyl and Levaquin to cover pulmonary pathogens. 4. IV fluids keep him hydrated. 5. He is a DNR according to the . His condition is guarded at this point. They do not want any heroic measures. I told him we will keep him comfortable. Given IV fluids antibiotics and oxygen and see how he does. 6. Respiratory therapy evaluation. 7. Give by mouth medicines as patient will respond.
[2017-01-12] MEDS ORDERED: Cholecalciferol (Vitamin D3) 1,000 Unit Tab PO SCH (09:00)
[2017-01-12] MEDS ORDERED: Polyethylene Glycol 3350 Powder 17 GM Packet PO SCH (09:00)
[2017-01-12 09:28] VITALS: BP 147/80
[2017-01-12] MEDS: Baclofen 10 MG Tab PO SCH (09:31)
[2017-01-12] MEDS: Carbidopa/Levodopa 25-100 MG Tab PO SCH ×2 (09:31→14:37)
[2017-01-12] MEDS: Lutein/Minerals/Vitamin C/Vitamin E Acetate Cap PO SCH (09:32)
[2017-01-12] MEDS: Multivitamin Tab PO SCH (09:32)
[2017-01-12] MEDS: amLODIPine 5 MG Tab PO SCH (09:32)
[2017-01-12] MEDS: Hypromellose 0.3% Ophth Soln 15 ML Bottle EYEBOTH SCH ×2 (11:41→14:37)
--- NOTE | 2017-01-12 12:04 | PCM.SN ---
- Free Text/Narrative Note: Hospice met with the whole family. Family decided to place the patient on hospice [facility] He 'll be transferred back on hospice orders per protocol.
--- NOTE | 2017-01-12 12:07 | PCM.DCSUM1 ---
Discharge Summary - Hospital Course Free Text/Narrative:: Hospital course-patient was placed in the hospital and IV fluids, Levaquin, Flagyl, O2 and respiratory breathing treatments. The family was informed that the patient's and pretty serious condition. He has lots of medical problems: Diabetes, Parkinson's that's end-stage. The patient is family wanted treatment. And after a while we discussed long-term care and they decided they would see hospice. Hospice talk to them and they wanted to me with hospice again. They met again today and wanted to place patient on hospice. The patient was here his white count was normal as oxygen did improve. He was somewhat responsive at times. Initially he was not responsive to painful stimulant. But later he was mildly responsive to voice and he would smile. Grab your hand. Patient will be transferred back [facility] where he is previously living on hospice per protocol. Brief History: This is an 86-year-old male patient that is a resident of [facility]. 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 According to the he's had a cough for about 3 days and then started more lethargic and start running a fever. His oxygen saturation was in the 80s last night. They brought him to the ER and he was admitted. His states when he is been eating lately that he's been coughing. He does have any thickened liquids for his diet. Patient is not responding and not able to get any history from him at this time. The is unaware of anything else going on with him. - Discharge Data Discharge Date: 01/12/17 Discharge Disposition: DC/Tfer to Hospice - Home 50 Condition: Poor - Discharge Diagnosis/Problem(s) (1) Palliative care status SNOMED Code(s): 416834460 ICD Code: Z51.5 - ENCOUNTER FOR PALLIATIVE CARE Status: Acute Current Visit: Yes (2) Aspiration pneumonia SNOMED Code(s): 831147798 ICD Code: J69.0 - PNEUMONITIS DUE TO INHALATION OF FOOD AND VOMIT Status: Acute Current Visit: Yes Problem Details: Obtain cultures, provide antibiotic coverage and support pulmonary status. 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 sets him up for dehydration and further neurovascular/electrolyte dysregulation. (6) Parkinson's disease SNOMED Code(s): 46875851 ICD Code: G20 - PARKINSON'S DISEASE Status: Chronic Priority: Medium Current Visit: No - Patient Instructions Diet: NPO Activity: Bedrest Driving: Do Not Drive Showering/Bathing: No Showering Other/Special Instructions: 1. Transfer to [facility] on hospice. 2. Orders per hospice protocol. - Discharge Plan Forms: ED Department Discharge Referrals: Liban Zhong MD [Primary Care Provider] - - Discharge Summary/Plan Comment DC Time >30 min.: No - Patient Data Vitals - Most Recent: Last Vital Signs Temp 98.2 F 01/12/17 08:15 Pulse 88 01/12/17 08:15 Resp 20 01/12/17 08:15 BP 147/80 H 01/12/17 09:32 Pulse Ox 93 L 01/12/17 09:30 Weight - Most Recent: 205 lb 4.8 oz I&O - Last 24 hours: Intake & Output 01/11/17 01/12/17 01/12/17 22:59 06:59 14:59 Intake Total 502 Balance 502 Lab Results - Last 24 hrs: Laboratory Results - last 24 hr 01/11/17 01/12/17 Range/Units 17:23 06:38 POC Glucose 179 H 121 H (80-116) mg/dL Med Orders - Current: Current Medications Acetaminophen (Tylenol) 650 mg PO Q4H PRN PRN Reason: mild pain or fever >101F Albuterol/Ipratropium (Duoneb 3.0-0.5 Mg/3 Ml) 3 ml NEB Q4H PRN PRN Reason: Cough Last Admin: 01/12/17 07:12 Dose: 3 ml Amlodipine Besylate (Norvasc) 5 mg PO DAILY [facility] Last Admin: 01/12/17 09:32 Dose: Not Given Artificial Tears (Genteal Mild To Moderate Ophth Soln) 0 ml EYEBOTH TID [facility] Last Admin: 01/12/17 11:41 Dose: Not Given Baclofen (Lioresal) 5 mg PO BID [facility] Last Admin: 01/12/17 09:31 Dose: Not Given Baclofen (Lioresal) 5 mg PO BID PRN PRN Reason: Pain Bisacodyl (Dulcolax) 10 mg RECTAL ASDIRECTED PRN PRN Reason: Constipation Carbidopa/Levodopa (Sinemet Cr 50-200 Mg) 1 tab PO ASDIRECTED PRN PRN Reason: if awake in middle of night Carbidopa/Levodopa (Sinemet Cr 50-200 Mg) 1 tab PO BEDTIME [facility] Last Admin: 01/11/17 21:39 Dose: Not Given Carbidopa/Levodopa (Sinemet 25-100 Mg) 2 tab PO TID@0800,1200,1600 [facility] Last Admin: 01/12/17 09:31 Dose: Not Given Cholecalciferol (Vitamin D3) 1,000 units PO DAILY [facility] Last Admin: 01/12/17 09:32 Dose: Not Given Gabapentin (Neurontin) 800 mg PO BEDTIME [facility] Last Admin: 01/11/17 21:39 Dose: Not Given Guaifenesin (Robitussin) 100 mg PO Q4H PRN PRN Reason: Cough Metronidazole 500 mg/ Premix 100 mls @ 100 mls/hr IV Q8H [facility] Last Admin: 01/12/17 11:41 Dose: Not Given Sodium Chloride (Normal Saline) 1,000 mls @ 125 mls/hr IV ASDIRECTED [facility] Last Admin: 01/12/17 03:07 Dose: 125 mls/hr Levofloxacin/Dextrose 500 mg/ (Premix) 100 mls @ 100 mls/hr IV Q24H [facility] Last Admin: 01/12/17 03:05 Dose: 100 mls/hr Lutein (Lutein) 5 mg PO DAILY [facility] Last Admin: 01/12/17 09:31 Dose: Not Given Magnesium Hydroxide (Milk Of Magnesia) 30 ml PO DAILY PRN PRN Reason: CONSTIPATION Multivitamins/Minerals/Vitamin C (Tab-A-Gabi) 1 tab PO DAILY [facility] Last Admin: 01/12/17 09:32 Dose: Not Given Polyethylene Glycol (Miralax) 17 gm PO DAILY [facility] Last Admin: 01/12/17 09:31 Dose: Not Given Senna/Docusate Sodium (Senna Plus) 1 tab PO BID [facility] Last Admin: 01/12/17 09:32 Dose: Not Given Sodium Chloride (Saline Flush) 10 ml FLUSH ASDIRECTED PRN PRN Reason: Keep Vein Open Last Admin: 01/10/17 01:51 Dose: 10 ml Sodium Chloride (Saline Flush) 10 ml FLUSH ASDIRECTED PRN PRN Reason: Keep Vein Open Trazodone HCl (Trazodone) 25 mg PO 1600 [facility] Last Admin: 01/11/17 16:59 Dose: Not Given Vit C/Vit E/Zinc/Copper/Lutein (Ocuvite Lutein) 1 each PO DAILY [facility] Last Admin: 01/12/17 09:32 Dose: Not Given Discontinued Medications Acetaminophen (Tylenol) 325 mg RECTAL NOW ONE Stop: 01/10/17 01:51 Last Admin: 01/10/17 02:12 Dose: 325 mg Levofloxacin/Dextrose 500 mg/ (Premix) 100 mls @ 100 mls/hr IV Q24H [facility] Last Admin: 01/11/17 02:40 Dose: 100 mls/hr Metronidazole (Flagyl 500 Mg In Ns 100 Ml) Confirm Administered Dose 100 mls @ as directed .ROUTE .STK-MED ONE Stop: 01/10/17 10:38 Last Admin: 01/10/17 15:37 Dose: Not Given Metformin HCl (Glucophage) 1,000 mg PO BIDMEALS [facility] Last Admin: 01/10/17 10:32 Dose: Not Given Vitamin D 400 Units ((Non-Form) *Ptom) 0 units PO BID [facility] Last Admin: 01/10/17 20:27 Dose: Not Given Polyethylene Glycol (Miralax) 17 gm PO DAILY [facility] Last Admin: 01/10/17 10:29 Dose: Not Given *Q Meaningful Use (DIS) - VTE *Q VTE Criteria *Q: - Stroke *Q Stroke Criteria *Q: - AMI *Q AMI Criteria *Q:
--- NOTE | 2017-01-17 12:21 | CR ---
INDICATION: Hypoxia. CHEST: An AP upright view of the chest 01/09/2017, was compared with 2015 and 07/28/2014. The heart appeared normal in size and shape. The aorta is tortuous with calcification in the arch. There appears to be a granuloma in the right upper lung field, upper middle lung field laterally. A definite active infiltrate or effusion was not identified. IMPRESSION: 1. Tortuous aorta, widening of the mediastinum medially and laterally at the level of the aortopulmonary window with calcification in the arch. 2. Chest negative for an acute process. MTDD
== END 2017-01-12 11:30 | disposition hospice, home (50) | DRG 179 ==
LOC: FB.ED 22:00 → FB.MS 23:13 → OBSVTOIN 01-11 09:31
PROVIDERS: ADMIT Family Medicine; ATTEND Family Medicine
DX: J69.0 Pneumonitis due to inhalation of food and vomit (principal); G20 Parkinson's disease; E11.9 Type 2 diabetes mellitus without complications; Z79.4 Long term (current) use of insulin; Z66 Do not resuscitate; Z87.891 Personal history of nicotine dependence; R09.89 Other specified symptoms and signs involving the circulatory and respiratory systems; R05 Cough; R50.9 Fever, unspecified; R26.2 Difficulty in walking, not elsewhere classified; R06.4 Hyperventilation; Z85.46 Personal history of malignant neoplasm of prostate; Z85.828 Personal history of other malignant neoplasm of skin; H91.90 Unspecified hearing loss, unspecified ear; H35.30 Unspecified macular degeneration; Z51.5 Encounter for palliative care
CPT/HCPCS: 36415 ×2; 71010; 80053 ×2; 82962 ×2; 85025 ×2; 87040 ×2; 94640; 99285; A9270 ×3; J1956 ×2; J7040 ×3; J7050; J7620; 96361; 96365; 96366; 96367; 96375; G0378